=== PATIENT | female | born 1940 | race Caucasian/White ===

== ENCOUNTER → 2020-02-28 | Outpatient (CLI) | payer MEDICARE, OTHER | END | disposition home or self-care (01) | LOC: LAB EV 13:59 → LAB SHORT 13:59 | DX: N39.0 Urinary tract infection, site not specified (principal) | CPT/HCPCS: 87086 ==

== ENCOUNTER 2020-08-14 08:44 | Day surgery (SDC) | payer MEDICARE, OTHER | END 2020-08-14 23:38 | disposition home or self-care (01) | LOC: WOUND 08:44 | DX: I96 Gangrene, not elsewhere classified (principal); L97.811 Non-pressure chronic ulcer of other part of right lower leg limited to breakdown of skin; I10 Essential (primary) hypertension; G89.29 Other chronic pain; M47.896 Other spondylosis, lumbar region; M81.0 Age-related osteoporosis without current pathological fracture; G47.00 Insomnia, unspecified; Z87.891 Personal history of nicotine dependence; Z79.899 Other long term (current) drug therapy ==

== ENCOUNTER 2020-08-22 00:25 | Day surgery (SDC) | payer MEDICARE, OTHER | END 2020-08-22 22:56 | disposition home or self-care (01) | LOC: WOUND 00:25 | DX: I83.018 Varicose veins of right lower extremity with ulcer other part of lower leg (principal); I83.028 Varicose veins of left lower extremity with ulcer other part of lower leg; L97.812 Non-pressure chronic ulcer of other part of right lower leg with fat layer exposed; L97.829 Non-pressure chronic ulcer of other part of left lower leg with unspecified severity; I96 Gangrene, not elsewhere classified; I10 Essential (primary) hypertension ==

== ENCOUNTER 2020-08-26 00:13 | Day surgery (SDC) | payer MEDICARE, OTHER | END 2020-08-26 23:07 | disposition home or self-care (01) | LOC: WOUND 00:13 | DX: I83.018 Varicose veins of right lower extremity with ulcer other part of lower leg (principal); L97.812 Non-pressure chronic ulcer of other part of right lower leg with fat layer exposed; I96 Gangrene, not elsewhere classified; I10 Essential (primary) hypertension ==

== ENCOUNTER 2020-08-28 08:41 | Day surgery (SDC) | payer MEDICARE, OTHER | END 2020-08-28 22:55 | disposition home or self-care (01) | LOC: WOUND 08:41 | DX: L97.912 Non-pressure chronic ulcer of unspecified part of right lower leg with fat layer exposed (principal); I73.9 Peripheral vascular disease, unspecified; I83.93 Asymptomatic varicose veins of bilateral lower extremities; Z79.899 Other long term (current) drug therapy ==

== ENCOUNTER 2020-09-01 02:12 | Day surgery (SDC) | payer MEDICARE, OTHER | END 2020-09-01 23:21 | disposition home or self-care (01) | LOC: WOUND 02:12 | DX: I83.018 Varicose veins of right lower extremity with ulcer other part of lower leg (principal); L97.811 Non-pressure chronic ulcer of other part of right lower leg limited to breakdown of skin; I83.028 Varicose veins of left lower extremity with ulcer other part of lower leg; L97.829 Non-pressure chronic ulcer of other part of left lower leg with unspecified severity; I70.248 Atherosclerosis of native arteries of left leg with ulceration of other part of lower leg; I70.238 Atherosclerosis of native arteries of right leg with ulceration of other part of lower leg; I96 Gangrene, not elsewhere classified; I10 Essential (primary) hypertension ==

== ENCOUNTER 2020-09-08 01:25 | Day surgery (SDC) | payer MEDICARE, OTHER | END 2020-09-08 23:00 | disposition home or self-care (01) | LOC: WOUND 01:25 | DX: L97.912 Non-pressure chronic ulcer of unspecified part of right lower leg with fat layer exposed (principal); I83.93 Asymptomatic varicose veins of bilateral lower extremities; I70.203 Unspecified atherosclerosis of native arteries of extremities, bilateral legs; I10 Essential (primary) hypertension; Z79.899 Other long term (current) drug therapy ==

== ENCOUNTER 2020-09-15 00:19 | Day surgery (SDC) | payer MEDICARE, OTHER | END 2020-09-15 22:58 | disposition home or self-care (01) | LOC: WOUND 00:19 | DX: L97.912 Non-pressure chronic ulcer of unspecified part of right lower leg with fat layer exposed (principal); I83.93 Asymptomatic varicose veins of bilateral lower extremities; I70.238 Atherosclerosis of native arteries of right leg with ulceration of other part of lower leg; I70.202 Unspecified atherosclerosis of native arteries of extremities, left leg; I10 Essential (primary) hypertension; Z79.899 Other long term (current) drug therapy ==

== ENCOUNTER 2020-09-22 00:15 | Day surgery (SDC) | payer MEDICARE, OTHER | END 2020-09-22 23:08 | disposition home or self-care (01) | LOC: WOUND 00:15 | DX: I83.018 Varicose veins of right lower extremity with ulcer other part of lower leg (principal); L97.812 Non-pressure chronic ulcer of other part of right lower leg with fat layer exposed; I96 Gangrene, not elsewhere classified; I10 Essential (primary) hypertension ==

== ENCOUNTER 2020-09-29 00:23 | Day surgery (SDC) | payer MEDICARE, OTHER | END 2020-09-29 23:52 | disposition home or self-care (01) | LOC: WOUND 00:23 | DX: L97.912 Non-pressure chronic ulcer of unspecified part of right lower leg with fat layer exposed (principal); I83.93 Asymptomatic varicose veins of bilateral lower extremities; I10 Essential (primary) hypertension; I70.203 Unspecified atherosclerosis of native arteries of extremities, bilateral legs; G89.4 Chronic pain syndrome; M81.0 Age-related osteoporosis without current pathological fracture; G47.00 Insomnia, unspecified; Z87.891 Personal history of nicotine dependence; Z79.899 Other long term (current) drug therapy ==

== ENCOUNTER 2020-10-06 00:23 | Day surgery (SDC) | payer MEDICARE, OTHER | END 2020-10-06 23:16 | disposition home or self-care (01) | LOC: WOUND 00:23 | DX: I70.248 Atherosclerosis of native arteries of left leg with ulceration of other part of lower leg (principal); L97.829 Non-pressure chronic ulcer of other part of left lower leg with unspecified severity; I70.238 Atherosclerosis of native arteries of right leg with ulceration of other part of lower leg; L97.812 Non-pressure chronic ulcer of other part of right lower leg with fat layer exposed; I83.93 Asymptomatic varicose veins of bilateral lower extremities; I96 Gangrene, not elsewhere classified; I10 Essential (primary) hypertension ==

== ENCOUNTER 2020-10-13 00:45 | Day surgery (SDC) | payer MEDICARE, OTHER | END 2020-10-13 22:54 | disposition home or self-care (01) | LOC: WOUND 00:45 | DX: L97.912 Non-pressure chronic ulcer of unspecified part of right lower leg with fat layer exposed (principal); I73.9 Peripheral vascular disease, unspecified; I83.93 Asymptomatic varicose veins of bilateral lower extremities; I10 Essential (primary) hypertension | CPT/HCPCS: G0463 ==

== ENCOUNTER 2021-07-30 00:50 | Day surgery (SDC) | payer MEDICARE, OTHER | END 2021-07-30 23:24 | disposition home or self-care (01) | LOC: WOUND 00:50 | DX: S81.802A Unspecified open wound, left lower leg, initial encounter (principal); X58.XXXA Exposure to other specified factors, initial encounter | CPT/HCPCS: G0463 ==

== ENCOUNTER 2021-08-13 08:00 | Day surgery (SDC) | payer MEDICARE, OTHER | END 2021-08-13 23:59 | disposition home or self-care (01) | LOC: WOUND 08:00 | DX: S81.802A Unspecified open wound, left lower leg, initial encounter (principal); X58.XXXA Exposure to other specified factors, initial encounter; L97.912 Non-pressure chronic ulcer of unspecified part of right lower leg with fat layer exposed; I83.90 Asymptomatic varicose veins of unspecified lower extremity; I70.203 Unspecified atherosclerosis of native arteries of extremities, bilateral legs | CPT/HCPCS: G0463 ==

== ENCOUNTER → 2022-02-16 | Outpatient (CLI) | payer MEDICARE, OTHER | END | disposition home or self-care (01) | LOC: LAB SHORT 12:05 → PLD 12:05 | DX: L57.0 Actinic keratosis (principal); L57.8 Other skin changes due to chronic exposure to nonionizing radiation | CPT/HCPCS: 88305 ==

== ENCOUNTER → 2022-07-27 | Outpatient (CLI) | payer MEDICARE, OTHER | LOC: LAB 07:56 → LAB SHORT 07:56 | DX: L82.1 Other seborrheic keratosis (principal); L57.0 Actinic keratosis | CPT/HCPCS: 88305 ==

== ENCOUNTER → 2022-11-24 | Outpatient (CLI) | payer MEDICARE, OTHER | END | disposition home or self-care (01) | LOC: LAB 12:32 → LAB SHORT 12:32 | DX: N39.0 Urinary tract infection, site not specified (principal) | CPT/HCPCS: 87077; 87086; 87186 ==

== ENCOUNTER → 2023-11-01 | Outpatient (CLI) | payer MEDICARE, OTHER ==
[2023-11-01 17:03] LABS: Source, Urine Clean Catch
[2023-11-01 18:18] LABS: Appearance, Urine Hazy (Clear); Bilirubin, Urine Neg (Neg); Blood, Urine 1+ (Neg); Glucose Qualitative, Urine Neg (Neg); Ketones, Urine Neg (Neg); Leukocyte Esterase, Urine 2+ (Neg); Nitrite, Urine Neg (Neg); Protein, Urine Neg (Neg); Specific Gravity, Urine 1.015 (1.003-1.022); Urobilinogen, Urine NORM (Normal)
[2023-11-01 18:31] LABS: Color, Urine Pale Yellow (P-Yellow)
[2023-11-01 18:32] LABS: Bacteria Few /hpf; Squamous Epithelial Cells Few /hpf (Few); Transitional Epithelial Cells Rare /hpf (0-Rare)
== END | disposition home or self-care (01) ==
LOC: LAB SHORT 17:01 → LAB 17:01
PROVIDERS: Obstetrics & Gynecology
DX: R30.0 Dysuria (principal)
CPT/HCPCS: 81001; 87077; 87086; 87186

== ENCOUNTER → 2024-01-30 | Outpatient (CLI) | payer MEDICARE, OTHER | LOC: LAB 18:23 → LAB SHORT 18:23 | DX: L03.115 Cellulitis of right lower limb (principal) | CPT/HCPCS: 87070; 87205 ==

== ENCOUNTER 2024-02-08 03:09 | Day surgery (SDC) | payer MEDICARE, OTHER | END 2024-02-08 22:50 | disposition home or self-care (01) | LOC: WOUND 03:09 | DX: S81.801A Unspecified open wound, right lower leg, initial encounter (principal); W22.8XXA Striking against or struck by other objects, initial encounter; L97.20 Non-pressure chronic ulcer of unspecified calf; Z87.891 Personal history of nicotine dependence | CPT/HCPCS: G0463 ==

== ENCOUNTER → 2024-06-06 | Outpatient (CLI) | payer MEDICARE, OTHER ==
[2024-06-06 15:15] LABS: Bacterial Vaginosis PCR Negative (NEGATIVE)
[2024-06-12 12:44] LABS: Candida Group, PCR NOT DETECTED (NOT DETECT); Candida glabrata-krusei, PCR DETECTED (NOT DETECT)
== END ==
LOC: LAB SHORT 12:03 → LAB 12:03
PROVIDERS: Family Medicine
DX: B37.31 Acute candidiasis of vulva and vagina (principal)
CPT/HCPCS: 87481; 87661; 87801

== ENCOUNTER → 2024-11-29 | Outpatient (CLI) | payer MEDICARE, OTHER ==
[2024-11-29 09:48] LABS: Source, Urine Voided
[2024-11-29 11:49] LABS: Appearance, Urine Clear (Clear); Bilirubin, Urine Neg (Neg); Blood, Urine Neg (Neg); Color, Urine Yellow (P-Yellow); Glucose Qualitative, Urine Neg (Neg); Ketones, Urine Neg (Neg); Leukocyte Esterase, Urine Neg (Neg); Nitrite, Urine Neg (Neg); Protein, Urine Neg (Neg); Urobilinogen, Urine NORM (Normal); pH, Urine 6.5 (5.0-8.0)
== END ==
LOC: LAB 09:46 → LAB SHORT 09:46
PROVIDERS: Hospitalist
DX: R31.9 Hematuria, unspecified (principal)
CPT/HCPCS: 81003

== ENCOUNTER → 2025-01-16 | Outpatient (CLI) | payer MEDICARE, OTHER | LOC: LAB SHORT 10:36 → LAB 10:36 | DX: N39.0 Urinary tract infection, site not specified (principal) | CPT/HCPCS: 87077; 87086; 87186 ==

== ENCOUNTER → 2025-04-16 | Outpatient (CLI) | payer MEDICARE, OTHER ==
[2025-04-16 16:42] LABS: Bacterial Vaginosis PCR Negative (NEGATIVE); Candida glabrata-krusei, PCR NOT DETECTED (NOT DETECT)
[2025-04-16 16:49] LABS: Candida Group, PCR DETECTED (NOT DETECT)
== END ==
LOC: LAB SHORT 12:50 → LAB 12:50
DX: N89.8 Other specified noninflammatory disorders of vagina (principal)
CPT/HCPCS: 81515

== ENCOUNTER → 2025-04-22 | Outpatient (CLI) | payer MEDICARE, OTHER | LOC: LAB SHORT 15:51 → LAB 15:51 | DX: R39.9 Unspecified symptoms and signs involving the genitourinary system (principal) | CPT/HCPCS: 87086 ==

== ENCOUNTER → 2025-05-16 | Outpatient (CLI) | payer MEDICARE, OTHER | LOC: LAB 16:01 → LAB SHORT 16:01 | DX: B37.31 Acute candidiasis of vulva and vagina (principal) | CPT/HCPCS: 87070; 87205 ==